=== PATIENT | female | born 1985 | race Caucasian/White ===

== ENCOUNTER 2017-12-01 09:39 | Emergency (ER) | payer OTHER ==
--- NOTE | 2017-12-01 12:01 | UC ---
FLU HPI - HPI Summary HPI Summary: 32 y/o female presents to the urgent care c/o nasal congestion and clear nasal discharge, dry cough, body aches, chills sweats ans mild CISNEROS since yesterday. Pt has not taking anything to alleviate symptoms. She started to do the saumya pot to clear sinuses. Pain is 2/10. Pt denies SOB, chest pain, abdominal pain, N/V/ D. - History of Current Complaint Chief Complaint: UCGeneralIllness Stated Complaint: SINUS CONGESTION Time Seen by Provider: 12/01/17 11:56 Hx Obtained From: Patient Hx Last Menstrual Period: ON DEPOPROVERA ?: No Onset/Duration: Gradual Onset, Lasting Days - 1 day, Still Present, Worse Since - today Severity Currently: Moderate Severity Initially: Mild Pain Intensity: 0 Pain Scale Used: 0-10 Numeric Associated Signs & Symptoms: Positive: Myalgia, Cough, Nasal Congestion, Headache - Risk Factors Influenza Risk Factors: Negative - Allergy/Home Medications Allergies/Adverse Reactions: Allergies Allergy/AdvReac Type Severity Reaction Status Date / Time Adhesive Tape Allergy Intermediate Rash Verified 12/01/17 10:14 [Tegaderm Dressing] Home Medications: Home Medications Biotin 1 tab PO DAILY 12/01/17 [History Confirmed 12/01/17] buPROPion TAB* [Wellbutrin TAB*] 300 mg PO DAILY 12/01/17 [History Confirmed 09/07] traZODone TAB* [Desyrel TAB*] 50 mg PO BEDTIME 12/01/17 [History Confirmed 12/01] PMH/Surg Hx/FS Hx/Imm Hx Previously Healthy: Yes Neurological History: Migraine Psychological History: Anxiety Other Psychological History: Insomnia - Surgical History Surgical History: Yes Surgery Procedure, Year, and Place: L rotator cuff 2009. Appendix removal 2003. gallblader removal 2004. T&A - Family History Known Family History: Positive: Cardiac Disease, Hypertension Family History: Dyslipidemia - Social History Occupation: Employed Full-time Lives: With Family Alcohol Use: None Substance Use Type: None Smoking Status (MU): Light Every Day Tobacco Smoker - Immunization History Most Recent Tetanus Shot: UTD Review of Systems Constitutional: Chills, Fatigue, Other - body aches Skin: Negative Eyes: Negative ENT: Nasal Discharge, Sinus Congestion Respiratory: Cough Cardiovascular: Negative Gastrointestinal: Negative Genitourinary: Negative Motor: Negative Neurovascular: Negative Musculoskeletal: Negative Neurological: Headache Psychological: Negative Is Patient Immunocompromised?: No All Other Systems Reviewed And Are Negative: Yes Physical Exam Triage Information Reviewed: Yes Vital Signs: Initial Vital Signs Temp 98.6 F 12/01/17 10:08 Pulse 88 12/01/17 10:08 Resp 20 12/01/17 10:08 BP 119/70 12/01/17 10:08 Pulse Ox 99 12/01/17 10:08 - Additional Comments VITAL SIGNS: Reviewed. GENERAL: Patient is a well developed and nourished female who is sitting comfortable in the examining table. Patient is not in any acute respiratory distress. HEAD AND FACE: No signs of trauma. No ecchymosis, hematomas or skull depressions. No sinus tenderness. edematous erythematous nasal mucosa with yellowish discharge, EYES: PERRLA, EOMI x 2, No injected conjunctiva, clear watery eyes, no nystagmus. No photophobia. EARS: Hearing grossly intact. Ear canals and tympanic membranes are within normal limits. MOUTH: Positive pharynx with erythema, no exudates,no palatal petechiae. no B/L tonsillar enlargement Uvula in midline. NECK: Supple, trachea is midline, Positive anterior cervical lymphadenopathy, no JVD, no carotid bruit, no c-spine tenderness, neck with full ROM. No meningeal signs, no Kernig's or brudzinskis signs. CHEST: Symmetric, no tenderness at palpation LUNGS: Clear to auscultation bilaterally. No wheezing or crackles. CVS: Regular rate and rhythm, S1 and S2 present, no murmurs or gallops appreciated. ABDOMEN: Soft, non-tender. No signs of distention. No rebound no guarding, and no masses palpated. Bowel sounds are normal. EXTREMITIES: FROM in all major joints, no edema, no cyanosis or clubbing. NEURO: Alert and oriented x 3. No acute neurological deficits. Speech is normal and follows commands. SKIN: Dry and warm Flu Course/Dx - Course Course Of Treatment: 32 y/o female presents to the urgent care c/o nasal congestion and clear nasal discharge, dry cough, body aches, chills sweats ans mild CISNEROS since yesterday. Pt has not taking anything to alleviate symptoms. She started to do the saumya pot to clear sinuses. Pain is 2/10. Pt denies SOB, chest pain, abdominal pain, N/V/D. Pt with URI on examination. Influenza A&B ordered: result: negative. PT Rx ibuprofen PO and flonase nasal spray to alleviates symptoms. Advised on hand washing.Pt advised to rest, increase fluid intake, eat well and avoid strenuous exercise. If symptoms do not improve or worsen advised to return to the urgent care or f/u with her PCP for further evaluation and treatment. Pt understood and agreed with plan of care. - Differential Dx/Diagnosis Differential Diagnosis/HQI/PQRI: Bronchitis, Influenza, Pneumonia, Upper Respiratory Infection Provider Diagnoses: 1- Upper respiratory infection Discharge - Discharge Plan Condition: Stable Disposition: HOME Prescriptions: Fluticasone NASAL SPRAY 50MCG* [Flonase NASAL SPRAY 50MCG*] 2 spray BOTH NARES DAILY #1 btl Ibuprofen TAB* [Motrin TAB* 800 MG] 800 mg PO Q6H PRN #20 tab PRN Reason: Pain Patient Education Materials: Upper Respiratory Infection (ED) Referrals: Faustino Lobo MD [Primary Care Provider] - 3 Days Additional Instructions: 1-Please take ibuprofen PO q6-8hrs prn as instructed after meals to alleviate pain and swelling. Increase fluid intake, eat well, rest and avoid strenuous exercise 2- Use the Flonase nasal spray and saline drops to clear sinuses 3-If symptoms do not improve or worsen please return to the urgent care or f/u with your PCP for further evaluation and treatment.
[2017-12-01 12:19] VITALS: BP 117/81
== END 2017-12-01 13:03 | disposition home or self-care (01) ==
LOC: UCEAST 09:39
DX: J06.9 Acute upper respiratory infection, unspecified (principal); F41.9 Anxiety disorder, unspecified; F17.210 Nicotine dependence, cigarettes, uncomplicated
CPT/HCPCS: 87502; 99212; G0463

== ENCOUNTER 2018-06-21 09:16 | Emergency (ER) | payer OTHER ==
--- NOTE | 2018-06-21 10:44 | UC ---
Skin Complaint HPI - HPI Summary HPI Summary: IN-ROOM NOTE: This patient is a 32 year old F presenting to [facility] with a chief complaint of a sudden LLE, LUE rash since 06/12/2018. The patient rates the pain 2/10 in severity. Patient reports itchiness, sore throat, and frequent urination. Patient denies joint pain, fever, dysuria, nausea, and vomiting. She saw her PCP who did not give her a diagnosis but prescribed her 20 mg of steroids to take twice a day. Today is her last day on those steroids and then rashes have no resolved. NOTE: Vital signs stable. Afebrile. Pulse ox 98. 2/10 discomfort. History includes alcoholism, in recovery. Visit history noncontributory to present complaint. Patients history also includes migraine, anxiety, and opioid addition. She is on Trazodone and Wellbutrin. NURSES NOTE: rash over lower legs and left arm just finished a run of steroids - History of Current Complaint Chief Complaint: UCRash Time Seen by Provider: 06/21/18 10:33 Stated Complaint: RASH Hx Obtained From: Patient Hx Last Menstrual Period: depo Onset/Duration: Sudden Onset, Lasting Days - since 06/12/2018, Still Present Current Severity: Mild Pain Intensity: 2 Pain Scale Used: 0-10 Numeric Associated Signs & Symptoms: Negative: Nausea, Vomiting, Fever - Allergy/Home Medications Allergies/Adverse Reactions: Allergies Allergy/AdvReac Type Severity Reaction Status Date / Time Adhesive Tape Allergy Intermediate Rash Verified 06/21/18 09:23 [Tegaderm Dressing] Review of Systems Constitutional: Fever - Denies ENT: Sore Throat, Other - Itchiness Gastrointestinal: Vomiting - Denies, Nausea - Denies Genitourinary: Dysuria - Denies, Frequency - Increased frequency in urination Musculoskeletal: Other: - Denies joint pain All Other Systems Reviewed And Are Negative: Yes - Comments Additional Review of Systems Comments: POSITIVE: LLE AND LLU UPPER EXTREMTY RASH. ITCHINESS, SORE THROAT, FREQUENT URINATION NEGATIVE: joint pain, fever, dysuria, nausea, vomiting PMH/Surg Hx/FS Hx/Imm Hx Previously Healthy: Yes - Previous history of acne, shingles, and chicken pox. Cardiovascular History: Cardiac Disease - Denies - Surgical History Surgical History: Yes Surgery Procedure, Year, and Place: L rotator cuff 2009. Appendix removal 2003. gallblader removal 2004. T&A - Family History Known Family History: Positive: Cardiac Disease, Hypertension Family History: Dyslipidemia - Social History Alcohol Use: Rare Substance Use Type: None Smoking Status (MU): Light Every Day Tobacco Smoker - Immunization History Most Recent Tetanus Shot: UTD Physical Exam - Summary Physical Exam Summary: Appearance: The patient is well-appearing, is in no pain distress, and is well- nourished. Eyes: Conjunctiva are clear. ENT: The hearing is grossly normal, the pharynx is normal, and the TMs are normal. There is no muffled or hoarse voice. LEFT ANTERIOR MILD CERVICAL ADENOPATHY, TENDER WITH PALPATION. DISCOMFORT WITH SWALLOWING, NO EXUDATES SEEN , POSTERIOR LYMPH PATCHES. Neck: The neck is supple and there is no lymphadenopathy. Respiratory: The chest is nontender. The lungs are clear, there are normal breath sounds, and there is no respiratory distress. Cardiovascular: Heart is regular rate and rhythm. There is no murmur. Abdomen: The abdomen is soft and nontender. There is no organomegaly. Bowel sounds: present Musculoskeletal: Strength is intact. The patient moves all extremities. Neurological: The patient is alert. Motor and sensory examination grossly intact. Psychological: The patient displays age appropriate behavior Skin: NO RASH ABOVE WAIST. EXAMINATION OF THE ULNAR ASPECT OF THE LEFT ARM SHOWS SCATTERED MACULOPAPULAR ERUPTION WITHOUT EVIDENCE OF CELLULITIS EXAM OF LLE: SHOWS SCATTERED ERYTHEMATOUS MACULOPAPULAR RASH. THERE IS A CONFLUENT, ERETHEMATOUS SCALING RASH BEHIND THE LEFT KNEE THAT IS MILDLY ERYTHEMATOUS AND APPEARS ABIGAIL FADING. THERE IS NO EVIDENCE OF INFECTION. Triage Information Reviewed: Yes Vital Signs: Initial Vital Signs Temp 98 F 06/21/18 09:19 Pulse 94 06/21/18 09:19 Resp 20 06/21/18 09:19 BP 115/81 06/21/18 09:19 Pulse Ox 98 06/21/18 09:19 Vital Signs Reviewed: Yes Re-Evaluation - Re-Evaluation 1 Re-Evaluation Time: 11:34 Comment: Strep test and UA are clear. Physician informed the patient that he believes it is contact dermititis and will prescribe her antibiotics. Physician has said he will treat her for a UTI and treat her for dermititis. Course/Dx - Course Course Of Treatment: 32 y/o female with a spreading rash, primarily on her LLE. The rash is non-confluent. There are some lesions that are 1 cm in diameter, slightly raised and erythematous. There are also scattered lesions on her left forearm and one on her right foot. I doubt this is scabies, but I will treat it as such. She is also complaining about increased urinary frequency and a "warm" when urinating. Her UA is unremarkable. I will give her 3 days of Bactrum for 3 days of presumptive UTI. I will give her lidax cream for what may be a contact dermititis. - Differential Diagnoses - Skin Complaint Differential Diagnoses: Contact Dermatitis, Scabies, Other - Other skin eruption - Diagnoses Provider Diagnoses: contact dermititis LLE Discharge - Sign-Out/Discharge Documenting (check all that apply): Patient Departure - D/C All imaging exams completed and their final reports reviewed: No Studies - Discharge Plan Condition: Stable Prescriptions: Fluocinonide 0.05% CM(NF) [Lidex 0.05% CREAM(NF)] 1 tube .SEE ORDER TID 10 Days #1 applic MDD tid Permethrin 1% LOTION* [Nix 1% LOTION*] 1 applic TOPICAL SEE INSTRUCTIONS #1 btl Sulfamethox/Trimethoprim DS* [Bactrim DS 800/160 TAB*] 1 tab PO BID #10 tab Referrals: Faustino Lobo MD [Primary Care Provider] - - Attestation Statements Document Initiated by Scribe: Yes Documenting Scribe: Hasmukh Ahuja Provider For Whom Scribe is Documenting (Include Credential): Froylan Joshi MD Scribe Attestation: Hasmukh Hickman, scribed for Froylan Joshi MD on 06/21/18 at 1209.
[2018-06-21 11:23] VITALS: BP 111/81
== END 2018-06-21 12:30 | disposition home or self-care (01) ==
LOC: UCEAST 09:16
DX: L25.9 Unspecified contact dermatitis, unspecified cause (principal); F17.210 Nicotine dependence, cigarettes, uncomplicated
CPT/HCPCS: 81003; 84702; 87491; 87591; 87651; 87661; 99212; G0463

== ENCOUNTER 2019-02-15 15:35 | Emergency (ER) | payer OTHER ==
[2019-02-15 15:47] VITALS: BP 146/82
--- NOTE | 2019-02-15 15:47 | UC ---
Respiratory Complaint HPI - HPI Summary HPI Summary: cough and chest congestion x 3 days, wheezing today, tried to smoke a cigarrette and felt like she couldn't breath - History of Current Complaint Stated Complaint: COUGH, AND CHEST CONGESTION Time Seen by Provider: 02/15/19 15:45 Hx Obtained From: Patient Hx Last Menstrual Period: depo ?: No Onset/Duration: Sudden Onset, Lasting Days Severity Initially: Mild Severity Currently: Mild Character: Cough: Nonproductive Aggravating Factors: Deep Breaths Alleviating Factors: Nothing Associated Signs And Symptoms: Positive: Wheezing - Allergies/Home Medications Allergies/Adverse Reactions: Allergies Allergy/AdvReac Type Severity Reaction Status Date / Time Adhesive Tape Allergy Intermediate Rash Verified 02/15/19 15:47 [Tegaderm Dressing] Home Medications: Home Medications Gabapentin CAP(*) [Neurontin 300 CAP(*)] 600 mg PO BID 02/15/19 [History Confirmed 02/15/19] Venlafaxine EXT RELEASE CAP* [Effexor Xr CAP*] 300 mg PO DAILY 02/15/19 [ History Confirmed 02/15/19] PMH/Surg Hx/FS Hx/Imm Hx Previously Healthy: Yes - Surgical History Surgical History: Yes Surgery Procedure, Year, and Place: L rotator cuff 2009. Appendix removal 2003. gallblader removal 2004. T&A - Family History Known Family History: Positive: Cardiac Disease, Hypertension Family History: Dyslipidemia - Social History Alcohol Use: Rare Substance Use Type: None Smoking Status (MU): Light Every Day Tobacco Smoker - Immunization History Most Recent Tetanus Shot: UTD Review of Systems All Other Systems Reviewed And Are Negative: Yes ENT: Positive: Nasal Discharge, Sinus Congestion Respiratory: Positive: Cough Is Patient Immunocompromised?: No Physical Exam Triage Information Reviewed: Yes Appearance: No Pain Distress, Well-Nourished, Ill-Appearing Vital Signs Reviewed: Yes Eye Exam: Normal ENT: Positive: Pharyngeal erythema - with pND, Nasal congestion, TM bulging Dental Exam: Normal Neck exam: Normal Respiratory: Positive: Chest non-tender, No respiratory distress, No accessory muscle use, Wheezing, Inspiration Cardiovascular Exam: Normal Cardiovascular: Positive: RRR, No Murmur, Pulses Normal Abdominal Exam: Normal Abdomen Description: Positive: Nontender, No Organomegaly, Soft Musculoskeletal Exam: Normal Neurological Exam: Normal Psychological Exam: Normal Skin Exam: Normal Respiratory Course/Dx - Course Course Of Treatment: history obtained, exam performed, meds reviewed, given an albuterol treatment and treated for bronchitis - Differential Dx/Diagnosis Differential Diagnosis/HQI/PQRI: Asthma, Bronchitis, Influenza, Laryngitis, Lower Resp Infection, Sinusitis Provider Diagnosis: Bronchitis, Tobacco abuse Discharge - Sign-Out/Discharge Documenting (check all that apply): Patient Departure All imaging exams completed and their final reports reviewed: No Studies - Discharge Plan Condition: Stable Disposition: HOME Referrals: No Primary Care Phys,NOPCP [Primary Care Provider] - Additional Instructions: 1. take the medication as prescribed. 2. STOP SMOKING 3. Use the albuterol twice a day for the next week, plys every 4 hours as needed. 4. Follow up if not improving - Billing Disposition and Condition Condition: STABLE Disposition: Home
[2019-02-15] MEDS ORDERED: Albuterol 2.5 MG/3 ML NEB.SOL* (0.083%) INH ONE (15:53)
== END 2019-02-15 16:20 | disposition home or self-care (01) ==
LOC: UCEAST 15:35
DX: J40 Bronchitis, not specified as acute or chronic (principal); R09.81 Nasal congestion; H73.90 Unspecified disorder of tympanic membrane, unspecified ear; R09.89 Other specified symptoms and signs involving the circulatory and respiratory systems; R09.82 Postnasal drip; Z91.09 Other allergy status, other than to drugs and biological substances; F17.290 Nicotine dependence, other tobacco product, uncomplicated
CPT/HCPCS: 99212; G0463

== ENCOUNTER 2019-11-08 03:02 | Emergency (ER) | payer SELFPAY ==
[2019-11-08] MEDS ORDERED: Ketorolac INJ* 30 MG/ML 1 ML VIAL IM ONE (03:47)
[2019-11-08 04:10] LABS: ABS Basophils 0.1 10^3/ul (0-0.2); ABS Eosinophils 0.3 10^3/ul (0-0.6); ABS Lymphocytes 1.9 10^3/ul (1.0-4.8); ABS Neutrophils 10.2 10^3/ul (1.5-7.7); Eosinophil % 2.6 %; Hematocrit 44 % (35-47); Lymphocyte % 14.3 %; Mean Corpuscular HGB Conc 34 g/dL (31-36); Mean Corpuscular Hemoglobin 29 pg (27-31); Mean Corpuscular Volume 85 fL (80-97); Mean Platelet Volume 8.1 fL (7.4-10.4); Nucleated Red Blood Cells % 0.1; Platelet Count 244 10^3/uL (150-450); Red Blood Count 5.15 10^6 /uL (3.70-4.87); Red Cell Distribution Width 13 % (10-15); White Blood Count 13.5 10^3/uL (3.5-10.8)
[2019-11-08 04:16] LABS: INR 1.06 (0.82-1.09)
[2019-11-08 04:28] LABS: ALT 14 U/L (7-52); AST 16 U/L (13-39); Albumin 4.1 g/dL (3.2-5.2); Albumin/Globulin Ratio 1.2 (1-3); Alkaline Phosphatase 79 U/L (34-104); Anion Gap 7 mmol/L (2-11); BUN/Creatinine Ratio 13.9 (8-20); Blood Urea Nitrogen 15 mg/dL (6-24); CO2 Carbon Dioxide 24 mmol/L (22-32); Calcium 9.3 mg/dL (8.6-10.3); Chloride 103 mmol/L (101-111); EGFR African American 69.9 (>60); EGFR Non-African American 57.7 (>60); Globulin 3.5 g/dL (2-4); Glucose 94 mg/dL (70-100); Potassium 3.4 mmol/L (3.5-5.0); Sodium 134 mmol/L (135-145); Total Protein 7.6 g/dL (6.4-8.9)
[2019-11-08 04:34] LABS: HCG Pregnancy < 0.60 mIU/mL
[2019-11-08] MEDS ORDERED: Iodixanol* (CONTRAST) 320 MG/ML 100 ML SDV IV ONE (05:17)
--- NOTE | 2019-11-08 05:50 | ED ---
Neck Pain - HPI Summary HPI Summary: Patient is a 34 y/o F presenting to [facility] with complaints of left-sided neck pain and swelling with discomfort when swallowing. She states that she has had these Sx for the past year but reports an exacerbation of these Sx about 1.5 days ago, stating that the swelling and pain has spread. She also claims that she had a mild fever yesterday. Patient states that she had been evaluated by Dr. Angulo for these Sx. US was done and enlarged lymph node was noted. Patient was evaluated by Dr. Angulo in August of 2019, who wanted to get another US of her neck. However, patient did not have this done due to co-pay cost of $75. Patient has applied hot pad to her neck with minimal relief. She has not taken Tylenol for her Sx but has taken ibuprofen intermittently. PMHx of ruptured eardrum, depression, anxiety, and migraines noted. PSHx of appendectomy, cholecystectomy, ovarian cyst surgery, and shoulder surgery noted. FMHx of CA reported. She endorses tobacco and alcohol usage but denies substance usage. No alcohol consumption tonight is noted. Patient is on Depo. Home medications and allergies are reviewed. - History of Current Complaint Chief Complaint: EDGeneral Stated Complaint: NECK PAIN PER PT Time Seen by Provider: 11/08/19 03:10 Hx Obtained From: Patient Hx Last Menstrual Period: depo Onset/Duration Of Injury/Symptoms: Days Mechanism Of Injury: No Known Trauma Onset/Duration: Started weeks ago, Still Present, Worse Since Severity Initially: Mild Severity Currently: Severe Pain Intensity: 7 Pain Scale Used: 0-10 Numeric Location: Discrete At: - left neck Aggravating Factors: Nothing Alleviating Factors: Nothing Associated Signs & Symptoms: Positive: Fever - subjective - Allergies/Home Medications Allergies/Adverse Reactions: Allergies Allergy/AdvReac Type Severity Reaction Status Date / Time Adhesive Tape Allergy Intermediate Rash Verified 11/08/19 03:13 [Tegaderm Dressing] Opioids - Morphine Analogues Allergy See Comment Verified 11/08/19 03:19 Home Medications: Home Medications Bupropion XL* [Wellbutrin XL *] 1 tab PO DAILY 11/08/19 [History Confirmed 11/08] PMH/Surg Hx/FS Hx/Imm Hx Endocrine/Hematology History: Denies: Hx Diabetes, Hx Thyroid Disease Cardiovascular History: Denies: Hx Hypertension Respiratory History: Denies: Hx Asthma, Hx Chronic Obstructive Pulmonary Disease (COPD) GI History: Denies: Hx Ulcer History: Denies: Hx Dialysis Neurological History: Reports: Hx Migraine Psychiatric History: Reports: Hx Anxiety - SEES MENTAL HEALTH FOR ANXIETY, Hx Depression, Hx Substance Abuse - OPIATE ADDICTION HX/ DOES MXE Denies: Hx Eating Disorder - Cancer History Hx Chemotherapy: No Hx Radiation Therapy: No - Surgical History Surgery Procedure, Year, and Place: L rotator cuff 2009. Appendix removal 2003. gallblader removal 2004. T&A Hx Anesthesia Reactions: No - Immunization History Date of Tetanus Vaccine: utd Date of Influenza Vaccine: fall 2018 Infectious Disease History: No Infectious Disease History: Reports: Hx Shingles - 2008? 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 No acute distress. HEENT: Normocephalic, Atraumatic. Eyes: Conjuctiva normal, PERRL. Oropharynx: Clear, mucous membranes moist, (-) exudates. Neck: There is a 8 mm lymph node to her left neck that is freely mobile and not hard. There is mild tenderness at this area but no warmth or erythema. Soft, FROM, (-) thyromegaly, (-) JVD. Cardiovascular: Normal sinus rhythm, (-) murmur. Lungs: Clear to auscultation bilaterally (-) wheezes, (-) rales, (-) rhonchi. Abdomen: Soft, non-tender, non-distended, (-) organomegaly, normal bowel sounds. Back: (-) CVA tenderness Extremities: No edema. Skin: Warm, dry, (-) rash. Neuro: Alert and oriented x3, no focal deficits. Psychiatric: Mood normal, affect normal. Triage Information Reviewed: Yes Vital Signs On Initial Exam: Initial Vitals Temp Pulse Resp BP Pulse Ox 97.5 F 118 20 153/114 97 11/08/19 03:02 11/08/19 03:02 11/08/19 03:02 11/08/19 03:02 11/08/19 03:02 Vital Signs Reviewed: Yes Procedures - Sedation Patient Received Moderate/Deep Sedation with Procedure: No Diagnostics - Vital Signs Vital Signs Temp Pulse Resp BP Pulse Ox 11/08/19 03:02 97.5 F 118 20 153/114 97 - Laboratory Lab Results: Lab Results 11/08/19 11/08/19 11/08/19 Range/Units 03:57 04:03 04:03 WBC 13.5 H (3.5-10.8) 10^3/uL RBC 5.15 H (3.70-4.87) 10^6 /uL Hgb 15.0 (12.0-16.0) g/dL Hct 44 (35-47) % MCV 85 (80-97) fL MCH 29 (27-31) pg MCHC 34 (31-36) g/dL RDW 13 (10-15) % Plt Count 244 (150-450) 10^3/uL MPV 8.1 (7.4-10.4) fL Neut % (Auto) 75.5 % Lymph % (Auto) 14.3 % Real % (Auto) 7.1 % Eos % (Auto) 2.6 % Baso % (Auto) 0.5 % Absolute Neuts (auto) 10.2 H (1.5-7.7) 10^3/ul Absolute Lymphs (auto) 1.9 (1.0-4.8) 10^3/ul Absolute Monos (auto) 1.0 H (0-0.8) 10^3/ul Absolute Eos (auto) 0.3 (0-0.6) 10^3/ul Absolute Basos (auto) 0.1 (0-0.2) 10^3/ul Absolute Nucleated RBC 0.0 10^3/ul Nucleated RBC % 0.1 INR (Anticoag Therapy) 1.06 (0.82-1.09) Sodium 134 L (135-145) mmol/L Potassium 3.4 L (3.5-5.0) mmol/L Chloride 103 (101-111) mmol/L Carbon Dioxide 24 (22-32) mmol/L Anion Gap 7 (2-11) mmol/L BUN 15 (6-24) mg/dL Creatinine 1.08 H (0.51-0.95) mg/dL Est GFR ( Amer) 69.9 (>60) Est GFR (Non-Af Amer) 57.7 (>60) BUN/Creatinine Ratio 13.9 (8-20) Glucose 94 (70-100) mg/dL Calcium 9.3 (8.6-10.3) mg/dL Total Bilirubin 0.40 (0.2-1.0) mg/dL AST 16 (13-39) U/L ALT 14 (7-52) U/L Alkaline Phosphatase 79 (34-104) U/L Total Protein 7.6 (6.4-8.9) g/dL Albumin 4.1 (3.2-5.2) g/dL Globulin 3.5 (2-4) g/dL Albumin/Globulin Ratio 1.2 (1-3) Beta HCG, Quant < 0.60 mIU/mL Result Diagrams: 11/08/19 03:57 11/08/19 04:03 Lab Statement: Any lab studies that have been ordered have been reviewed, and results considered in the medical decision making process. - CT NECK CT CT Interpretation Completed By: Radiologist Summary of CT Findings: IMPRESSION: Posterior pharyngeal/prevertebral fluid extending from C1 up to the level of C7. measuring up to 1.2 x 10.6 cm (AP by transverse). Findings may represent. laryngitis. There is soft tissue swelling and multiple lymph nodes posterior to. the larynx causing mass effect on the posterior larynx. Opacification of the. left pyriform sinus may be secondary to mass effect from the enlarged lymph. nodes direct visualization an ENT consult is recommended to rule out underlying. mass. Extensive bilateral cervical chain lymphadenopathy. THIS REPORT WAS REVIEWED BY ED PHYSICIAN. Re-Evaluation - Re-Evaluation First Eval Re-Evaluation Time: 06:55 Comment: Results of CT were discussed. IV to be placed back in, Zosyn, Solu- Medrol to be administered. US to be obtained. Neck Course/Dx - Course Course Of Treatment: 34year old female presents for increased swelling in left neck mass, tenderness and discomfort with swallowing. she states she had this since last year, had an ultrasound and was told it is a lymph node. started getting worse couple months ago so she followed up with surgeon. repeat ultrasound was ordered but patient states she didn't go to it because of the copay cost of 75$. she has been taking ibuprofen intermittently. no systemic symptoms. mildly enlarged subcutaneous lesion c/w lymph node. work up demonstrates an elevated wbc. ct scan demonstrated left neck fluid areas. Enlarged lymph nodes. ENT consult recommended. Uncertain how this compares to previous ultrasound. Ultrasound done about a year ago is in our system. Repeat ultrasound will be ordered at this time to compare directly. Patient signout changes shift awaiting further testing. - Diagnoses Provider Diagnoses: Pharyngitis Discharge ED - Sign-Out/Discharge Documenting (check all that apply): Sign-Out Patient Signing out patient TO: Reyes May - Discharge Plan Condition: Stable Disposition: HOME Prescriptions: methylPREDNISolone [Medrol Dosepak 4 MG*] 4 mg PO .SEE JUAN INSTRUCTION #1 tab Penicillin VK TAB* [Penicillin VK 250 mg Tab*] 500 mg PO QID #40 tab Patient Education Materials: Pharyngitis (ED) Referrals: Shorty Dumont MD [Medical Doctor] - Additional Instructions: Follow up with Dr. Dumont, ENT, in 2-3 days. Return to the Emergency Room if you experience new or worsened symptoms. - Billing Disposition and Condition Condition: STABLE Disposition: Home - Attestation Statements Document Initiated by Yeyo: Yes Documenting Scribe: JAYY JAMES Provider For Whom Yeyo is Documenting (Include Credential): JOHAN FOUNTAIN MD Scribe Attestation: IJAYY, judyibed for JOHAN FOUNTAIN MD on 11/08/19 at 2157. Scribe Documentation Reviewed: Yes Provider Attestation: The documentation as recorded by the JAYY saeed accurately reflects the service I personally performed and the decisions made by me, JOHAN FOUNTAIN MD Status of Scribe Document: Viewed
[2019-11-08] MEDS ORDERED: methylPREDNISolone 125 MG* 2 ML VIAL IV ONE (07:07)
[2019-11-08] MEDS ORDERED: Piperacillin/Tazobac ADVAN(*) 3.375 GM in NS 0.9% 100 ML* 100 ML IVPB ONE (07:07)
[2019-11-08] MEDS ORDERED: Piperacillin/Tazobac (*) 3.375 GM BAG ONE (07:24)
--- NOTE | 2019-11-08 07:24 | ED ---
Progress - Progress Note Progress Note: Patient is a signout from Adenike Cohen MD, at change of shift at 0700 on , pending US neck, Zosyn, Solu-Medrol, and dispo. On reevaluation after the medications, she is stating that she is much improved. She is nontoxic in appearance with stable vitals. I am recommending close F/U with her PCP for a likely ENT referral. - Results/Orders Results/Orders: SOFT TISSUE US IMPRESSION: Cervical lymphadenopathy increased from June 13, 2018. These could be neoplastic or reactive in nature. FNA should be considered. This case was discussed with Dr. Reyes May on the morning of November 08, 2019. Re-Evaluation - Re-Evaluation First Eval Re-Evaluation Time: 06:55 Comment: Results of CT were discussed. IV to be placed back in, Zosyn, Solu- Medrol to be administered. US to be obtained. Course/Dx - Diagnoses Provider Diagnoses: Pharyngitis Is Visit Related: No Discharge ED - Sign-Out/Discharge Documenting (check all that apply): Patient Departure - Discharge Plan Condition: Stable Disposition: HOME Prescriptions: methylPREDNISolone [Medrol Dosepak 4 MG*] 4 mg PO .SEE JUAN INSTRUCTION #1 tab Penicillin VK TAB* [Penicillin VK 250 mg Tab*] 500 mg PO QID #40 tab Patient Education Materials: Pharyngitis (ED) Referrals: Shorty Dumont MD [Medical Doctor] - Additional Instructions: Follow up with Dr. Dumont, ENT, in 2-3 days. Return to the Emergency Room if you experience new or worsened symptoms. - Billing Disposition and Condition Condition: STABLE Disposition: Home - Attestation Statements Document Initiated by Yeyo: Yes Documenting Scribe: Ruddy Blevins Provider For Whom Yeyo is Documenting (Include Credential): Reyes May MD Scribe Attestation: Ruddy Hickman, scribed for Reyes May MD on 11/08/19 at 1209. Scribe Documentation Reviewed: Yes Provider Attestation: The documentation as recorded by the Ruddy saeed accurately reflects the service I personally performed and the decisions made by me, Reyes May MD Status of Scribe Document: Viewed
[2019-11-08 09:48] VITALS: BP 129/89
[2019-11-08 13:56] LABS: HIV 4th Generation Nonreactive (Nonreactive)
== END 2019-11-08 09:47 | disposition home or self-care (01) ==
LOC: ED 03:02
DX: J02.9 Acute pharyngitis, unspecified (principal); R59.0 Localized enlarged lymph nodes; F32.9 Major depressive disorder, single episode, unspecified; Z88.5 Allergy status to narcotic agent; Z91.048 Other nonmedicinal substance allergy status; F17.200 Nicotine dependence, unspecified, uncomplicated
CPT/HCPCS: 36415; 70491; 76536; 80053; 84702; 85025; 85610; 87389; 96365; 96372; 96375; 99282; J1885; J2543; J2930; Q9967